=== PATIENT | male | born 1955 | race Caucasian/White ===

== ENCOUNTER → 2021-01-22 13:59 | Outpatient (CLI) | payer OTHER, SELFPAY | PROVIDERS: Referring Provider Nurse Practitioner; Visit Provider Nurse Practitioner | DX: N34.3 Urethral syndrome, unspecified (principal) | CPT/HCPCS: 87086 ==

== ENCOUNTER → 2021-01-22 14:05 | Outpatient (CLI) | payer OTHER, SELFPAY ==
--- NOTE | 2021-01-22 14:07 | DI.RAD.S_ITS ---
PROCEDURE: XR KUB INDICATIONS: r/o kidney stone TECHNIQUE: One view of the abdomen acquired. COMPARISON: None. FINDINGS: Surgical changes and devices: None. Bowel: Bowel gas pattern is nonobstructive. Moderate fecal stasis throughout the colon is seen. No gross free air. Soft tissues: No suspicious abdominal calcifications. Visualized solid organ contours appear normal in size. Bones: No suspicious bony lesions. IMPRESSION: No gross renal calcification is seen. Constipation. Dictated by: Kenroy Patten M.D. on 01/22/2021 at 14:20 Approved by: Kenroy Patten M.D. on 01/22/2021 at 14:20
[2021-01-22 14:42] LABS: Hemoglobin 15.2 g/dL (13.5-17.5); Mean Corpuscular HGB Conc 33.1 % (30-36); Mean Corpuscular Hemoglobin 30.8 PG (26-34); Mean Corpuscular Volume 93.1 fL (80-100); Platelet Count 388 X10^3/uL (150-400); Red Blood Cell Count 4.94 X10^6/uL (4.5-5.9); White Blood Cell Count 11.9 X10^3/uL (4.5-11.0)
[2021-01-22 15:07] LABS: Alanine Aminotransferase 20 IU/L (<50); Albumin 3.9 g/dL (3.5-5.0); Albumin Globulin Ratio 1.3 (1.0-2.8); Alkaline Phosphatase 98 U/L (38-126); Aspartate Aminotransferase 24 IU/L (17-59); BUN Creatinine Ratio 12.9 (6-22); Bilirubin Total 0.5 mg/dL (0.2-1.3); Blood Urea Nitrogen 19 mg/dL (9-20); Calcium 8.9 mg/dL (8.4-10.2); Carbon Dioxide 25 mmol/L (22-32); Chloride 98 mmol/L (98-107); Cholesterol 162 mg/dL (140-199); Estimated Glomerular Filt Rate 48.2 mL/min (>60); Globulin 3.1 g/dL (1.7-4.1); Glucose 92 mg/dL (80-110); HDL Cholesterol 30 mg/dL (40-60); LDL Cholesterol Calculated 91 mg/dL (<100); Sodium 137 mmol/L (137-145); Triglycerides 205 mg/dL (35-150)
[2021-01-22 15:11] LABS: HEMOLYSIS 70 (0-50)
[2021-01-22 15:12] LABS: Potassium 5.1 mmol/L (3.4-5.1)
== END ==
PROVIDERS: Referring Provider Nurse Practitioner; Visit Provider Nurse Practitioner
DX: K59.00 Constipation, unspecified (principal); R10.9 Unspecified abdominal pain; N34.3 Urethral syndrome, unspecified
CPT/HCPCS: 36415; 74018; 80053; 80061; 85027; 87086

== ENCOUNTER → 2021-02-05 11:43 | Outpatient (CLI) | payer OTHER, SELFPAY ==
--- NOTE | 2021-02-05 11:43 | DI.CT.S_ITS ---
PROCEDURE: CT ABDOMEN PELVIS WO CON INDICATIONS: History of right-sided calculi TECHNIQUE: Noncontrast 5 mm thick sections acquired from the diaphragms to the symphysis. 5 mm coronal and sagittal reformats were then performed. For radiation dose reduction, the following was used: automated exposure control, adjustment of mA and/or kV according to patient size. COMPARISON: [facility], CR, XR KUB, 01/22/2021, 14:01. FINDINGS: Image quality: Excellent. ABDOMEN: Lung bases: Lung bases are clear. Heart size is normal. Solid organs: Liver is normal in size. Gallbladder is within normal limits . Pancreas is normal in contours. Spleen is normal in size. No adrenal nodules. Kidneys are normal in size, without hydronephrosis or nephrolithiasis. Mild right proximal ureteral dilatation is present. There is an 8 mm calculus within the right mid ureter, which was not clearly seen on the previous plain film examination. Peritoneum and bowel: Stomach and small bowel are grossly unremarkable. Appendix is not seen. No evidence of appendicitis. Colon is nondistended. Diverticulosis of the descending and sigmoid colon is present. Mild thickening of the proximal sigmoid colon, which demonstrates mild surrounding fat stranding. There is a loculated gas collection at the posterior superior aspect of the proximal sigmoid colon, measuring roughly 25 mm, consistent with a contained perforation. No free pneumoperitoneum . No free fluid. Nodes and vessels: No retroperitoneal or mesenteric adenopathy by size criteria. Aorta and inferior vena cava are normal in caliber. Miscellaneous: No ventral hernias. PELVIS: Genitourinary: Bladder wall thickness is normal. Miscellaneous: No inguinal hernias or adenopathy. Bones: No suspicious bony lesions. No vertebral body compression fractures. IMPRESSION: 1. Right mid ureteral calculus, causing mild right ureteral taken without hydronephrosis. 2. Diverticulitis of the proximal sigmoid colon with adjacent contained perforation. No free pneumoperitoneum is present. Dictated by: Sophia Terrell M.D. on 02/05/2021 at 13:59 Approved by: Sophia Terrell M.D. on 02/05/2021 at 14:03
== END ==
PROVIDERS: Referring Provider Urology; Visit Provider Urology
DX: N20.1 Calculus of ureter (principal); K57.32 Diverticulitis of large intestine without perforation or abscess without bleeding; R10.9 Unspecified abdominal pain
CPT/HCPCS: 74176

== ENCOUNTER → 2021-02-22 12:42 | Outpatient (CLI) | payer OTHER, SELFPAY ==
[2021-02-22 15:16] LABS: COVID19 -Nasal RAPID Negative (Negative)
== END ==
PROVIDERS: Referring Provider Urology; Visit Provider Urology
DX: Z20.822 Contact with and (suspected) exposure to COVID-19 (principal); N20.1 Calculus of ureter; K59.00 Constipation, unspecified; R10.9 Unspecified abdominal pain; Z87.448 Personal history of other diseases of urinary system
CPT/HCPCS: 81002; 87635

== ENCOUNTER 2021-02-25 12:00 | Day surgery (SDC) | payer OTHER, SELFPAY ==
[2021-02-18 10:34] VITALS: BMI 32.5
[2021-02-25] VITALS (8 sets, daily range): BP systolic 129–155; BP diastolic 77–92; PULSE 60–85; RESP 10–18; TEMP 35.8–36.8; O2SAT 91–98; BMI 32.5
[2021-02-25] MEDS: LACTATED RINGERS 1,000 ML 42 ML IV ×2 (12:55→13:42)
--- NOTE | 2021-02-25 13:11 | PM.PREOP ---
Pre-operative Note COVID-19 COVID-19 status: Negative Result date/Date tested (Pos, Neg/Pending): 02/22/21 Interval Note History & Physical reviewed/Exam performed by Physician: Yes Changes to H&P: No
--- NOTE | 2021-02-25 13:36 | SUR.OPER ---
Lithotomy on padded OR bed, head on pillow, arms secured on padded arm boards at <90 degrees abduction. Legs secured in padded yellow fins stirrups.
[2021-02-25] MEDS: IOPAMIDOL 15 ML VIAL INJ (13:42)
[2021-02-25] MEDS: CEFAZOLIN 1 GM VIAL 2 GM IV (13:43)
--- NOTE | 2021-02-25 14:24 | PM.OP.1 ---
Procedure & Clinicians Procedure: Cystoscopy, retrograde pyelogram, semi-rigid right ureteroscopy with laser lithotripsy, basket extraction of stone fragments and placement of right ureteral stent. Same procedure as scheduled: Yes Indications: This is a 65-year-old male who had various complaints including some left-sided pain was found to have a 7 mm stone which was observed on several occasions and had failed to pass over an extended period of time. He presents this time for definitive treatment of his right ureteral stone. Surgeon: Madi Rivero Click Yes if Unassisted: Yes Anesthesia Type: General Operative Notes Findings: Findings: Urethra normal to the prostatic fossa which shows moderate obstructive character. The mucosa is normal throughout. The right and left ureteral orifice in normal position with clear efflux. Because of the bladder is normal. At retrograde pyelogram the stone is noted to be in the distal ureter perhaps 7-9 cm from the ureteral orifice. But distinctly below the vessels. At ureteroscopy the stone is noted in the fluoroscopic position fragmented and all fragments were removed. A 7 Vietnamese multi length stent was left in position in the right collecting system without a nylon hardness or string. No other abnormalities were noted. Closure Type: not applicable Specimen(s): other (Stone fragments from right ureteral calculus) Applied: other (Ureteral stent 7 Vietnamese multi length no string) Estimated Blood Loss (mL): 0 Blood products transfused: none Procedure in detail: Procedure in detail: After informed consent was obtained, patient was identified and brought to the operating room. The patient was then placed in the supine position on the table and anesthesia was induced and maintained. After ensuring an adequate level of anesthesia the patient was transitioned to a lithotomy position. Patient was then prepped, draped and prepared for cystoscopic and ureteroscopic procedure. After prepping draping and ensure inadequate level anesthesia a 21 Vietnamese cystoscope was passed to the urethra and into the bladder. Cystoscopy is then performed. A cone-tipped catheters then impacted in the right ureteral orifice and under fluoroscopic visualization collecting system was filled with contrast the stone was identified in the distal ureter. The cone-tip catheter was removed and a hybrid wire was passed up past the stone and into the collecting system to be reserved as a safety wire. The scope having been removed to do this was then reinserted and a 2nd wire, an extra stiff Amplatz wire, was passed up in in the collecting system. The semi-rigid scope was then passed up to the level of the stone. The laser fiber was inserted and laser energy applied to the stone dusting and fragmenting it. With the stone adequately fragmented the laser fiber was removed after the laser been placed on standby. A Nitinol basket was then used to retrieve the fragments sequentially they were removed from the ureter and dropped in the bladder till no stone fragments remained within the ureter. The ureteral scope was then removed with the basket and the cystoscope reinserted and the stone fragments evacuated. With this accomplished the scope having been removed the wire was then backloaded through the scope and the scope placed back into the bladder. The stent was then passed over the wire and positioned in the renal pelvis under fluoroscopic visualization as well as in the bladder under direct vision. Grasping forceps was then inserted in the nylon heart is remove the stent was left in good position bladder was redraped drained and the scope was removed. With this having been accomplished the patient was awakened having tolerated the procedure well he was then transferred to the postanesthesia care unit. There were no complications Complications: none Post-operative Condition: stable Disposition: PACU Plan for aftercare: Patient to follow-up my office in 10 days to 2 weeks with a KUB.
[2021-03-02 12:58] LABS: Ca oxalate dihydrate 20 % (.); Ca oxalate monohydr 80 % (.); Size 6x3 mm (.)
== END 2021-02-25 16:20 | disposition home or self-care (01) ==
PROVIDERS: Referring Provider Urology; Visit Provider Urology
PROC: 0TF68ZZ Fragmentation in Right Ureter, Via Natural or Artificial Opening Endoscopic (ICD-10-PCS; CPT 52353; principal; 2021-02-25 13:45)
DX: N20.1 Calculus of ureter (principal); Z87.448 Personal history of other diseases of urinary system; K59.00 Constipation, unspecified
CPT/HCPCS: 52356; 76000; 82365; J0690; J1100; J2405; J2704; J3010

== ENCOUNTER → 2021-03-03 12:28 | Outpatient (CLI) | payer OTHER, SELFPAY ==
--- NOTE | 2021-03-03 12:29 | DI.RAD.S_ITS ---
PROCEDURE: XR KUB INDICATIONS: Stent placement TECHNIQUE: One view of the abdomen acquired. COMPARISON: [facility], CT, CT ABDOMEN PELVIS WO CON, 02/05/2021, 12:09. [facility], CR, XR KUB, 01/22/2021, 14:01. FINDINGS: Surgical changes and devices: A right double-J ureteral stent is seen in the expected location of the right ureter Bowel: Bowel gas pattern is normal. Soft tissues: No suspicious abdominal calcifications. Visualized solid organ contours appear normal in size. Bones: No suspicious bony lesions. IMPRESSION: Right ureteral stent is seen in expected position. Dictated by: Brian Paul M.D. on 03/03/2021 at 14:07 Approved by: Brian Paul M.D. on 03/03/2021 at 14:09
== END ==
PROVIDERS: Referring Provider Urology; Visit Provider Urology
DX: N20.1 Calculus of ureter (principal); Z96.0 Presence of urogenital implants
CPT/HCPCS: 74018

== ENCOUNTER → 2021-03-08 15:52 | Outpatient (CLI) | payer OTHER, SELFPAY | PROVIDERS: Visit Provider Urology | DX: R30.0 Dysuria (principal) | CPT/HCPCS: 81002; 87086 ==

== ENCOUNTER → 2021-03-18 15:24 | Outpatient (CLI) | payer OTHER, SELFPAY | PROVIDERS: Visit Provider Urology | DX: R30.0 Dysuria (principal); N20.1 Calculus of ureter; Z96.0 Presence of urogenital implants; Z87.448 Personal history of other diseases of urinary system | CPT/HCPCS: 52310; 81002; 87086 ==

== ENCOUNTER → 2021-03-30 14:25 | Outpatient (CLI) | payer OTHER, SELFPAY ==
[2021-03-30 15:28] LABS: Uric Acid 6.3 mg/dL (3.5-8.5)
[2021-03-31 14:08] LABS: Calcium 9.4 mg/dL (8.6-10.2); Parathyroid Hormone, Intact 48 pg/mL (15-65)
== END ==
PROVIDERS: Referring Provider Urology; Visit Provider Urology
DX: N20.2 Calculus of kidney with calculus of ureter (principal); N20.1 Calculus of ureter
CPT/HCPCS: 36415; 81002; 82310; 83970; 84550

== ENCOUNTER → 2021-05-04 16:09 | Outpatient (CLI) | payer OTHER, SELFPAY ==
--- NOTE | 2021-05-04 | DI.RAD.S_ITS ---
PROCEDURE: XR CHEST 2V INDICATIONS: Chest Pain TECHNIQUE: 2 views of the chest were acquired. COMPARISON: None. FINDINGS: Surgical changes and devices: None. Lungs and pleura: Lungs are clear. No pleural effusions or pneumothorax. Mediastinum: Mediastinal contours are normal. Heart size is normal. Bones and chest wall: No suspicious bony abnormalities. Soft tissues appear unremarkable. IMPRESSION: Unremarkable two view chest radiograph Approved by: Yordy Estevez M.D. on 05/04/2021 at 16:18
== END ==
PROVIDERS: PCP Student in an Organized Health Care Education/Training Program; Referring Provider Student in an Organized Health Care Education/Training Program; Visit Provider Student in an Organized Health Care Education/Training Program
DX: R07.9 Chest pain, unspecified (principal)
CPT/HCPCS: 71046

== ENCOUNTER → 2021-06-16 15:10 | Outpatient (CLI) | payer OTHER, SELFPAY ==
--- NOTE | 2021-06-16 16:04 | PM.TREADMILL ---
Cardiac Stress Test Report Referral & Results Indication: chest pain Rest ECG: nsr Procedure Note: treadmill stress test Impression: standard janell protocol, 7:58, mets 10.1, MADHURI 0%, fair exercise capacity, normal hemodynamic response to exercise, 3/10 squeezing left sided chest pain during exercise that resolved immediately in recovery, no st changes noted, max HR 160 (120% of target heart rate achieved), normal bp response, rest ecg is normal. MANUEL Boogie. Please note: Actual ECG tracings can be found in the PACS system.
--- NOTE | 2021-06-17 19:05 | DI.NM.S_ITS ---
DATE OF SERVICE: 06/16/2021 PROCEDURE: Exercise stress test. INDICATION: Chest discomfort with underlying hypertension. CARDIAC STRESS: The patient underwent exercise stress test under the supervision of an attending staff. The patient walked on Chuckie protocol for 7 minutes and 58 seconds, achieved 103 percent of target heart rate. Baseline blood pressure 129/80 mmHg. Peak blood pressure 194/90 mmHg. Maximum heart rate was 160 beats per minute. The patient achieved 10.1 METs of workload. MADHURI is 0 percent. Baseline rhythm was sinus with left anterior fascicular block. During stress, no convincing ischemic changes seen. No significant arrhythmias seen. The patient developed chest discomfort, which was on a scale of 1 to 10, 3 in intensity during exercise, which got resolved in recovery immediately. CONCLUSION: 1. Exercise test is negative for inducible ischemia. However, patient had anginal-type of chest discomfort during exercise, which got resolved in recovery. Fair exercise tolerance. Normal hemodynamic response. No significant arrhythmias. Baseline left anterior fascicular block. 2. Considering his age of 65, being male, with hypertension, will recommend repeating exercise stress test with perfusion study, like a myocardial perfusion study or exercise stress echo for further coronary artery disease diagnosis and risk stratification. Gerber Smith - STEPHEN/taqueria/luis doc#: [id number]/job#: [id number] dd: 06/17/2021 17:26:00 dt: 06/17/2021 17:35:00 DICTATING /COPIES TO: Moi Merritt MD COPIES MNE: MAT;
== END ==
PROVIDERS: PCP Student in an Organized Health Care Education/Training Program; Referring Provider Student in an Organized Health Care Education/Training Program; Visit Provider Student in an Organized Health Care Education/Training Program
DX: R07.89 Other chest pain (principal); I10 Essential (primary) hypertension
CPT/HCPCS: 93017

== ENCOUNTER → 2021-06-21 14:51 | Outpatient (CLI) | payer OTHER, SELFPAY ==
--- NOTE | 2021-06-21 | DI.ECHO.S_ITS ---
[facility]---------+ [facility] +---------+ : : [address] : : : : [id number] : : : : Phone: [phone]---------+ Echocardiogram Report + + :Name: NERY CISNEROS Study Date: 06/21/2021 Height: 68 in : :[facility] ReadingLocation: Weight: 212 lb : : Gender: Male BSA: 2.1 m2 : :: 1955 Age: 65 yrs BP: 148/91 mmHg: :Reason For Study: CHEST PAIN : :Ordering Physician: LITO, : :ANA Performed By: Krupa Davis : :Referring: ANA MORSE : + + Interpretation Summary The ejection fraction is estimated to be 45-50%. Diastolic function could not be accurately assessed due to contradictory data. The right ventricle is normal in size and function. No significant valvular abnormalities. Pulmonary artery pressures cannot be estimated because of the lack of a measurable TR jet velocity. Procedure: A two-dimensional transthoracic echocardiogram with color flow and Doppler was performed. The study quality was technically adequate. There is no prior echocardiogram noted for this patient. The patient was in sinus rhythm with heart rates between 59-65 bpm during the exam. Left Ventricle: The left ventricle is normal in size and wall thickness. The ejection fraction is estimated to be 45-50%. Diastolic function could not be accurately assessed due to contradictory data. Right Ventricle: The right ventricle is normal in size and function. Atria: The left atrial size is normal. Right atrial size is normal. There is no Doppler evidence for an interatrial shunt. Mitral Valve: The mitral valve is normal in structure and function. There is trace mitral regurgitation. Aortic Valve: The aortic valve is trileaflet. The aortic valve opens well. There is no aortic valve stenosis. No aortic regurgitation is present. Tricuspid Valve: The tricuspid valve is normal in structure and function. There is trace tricuspid regurgitation. Pulmonary artery pressures cannot be estimated because of the lack of a measurable TR jet velocity. Pulmonic Valve: The pulmonic valve leaflets are thin and pliable; valve motion is normal. There is mild pulmonic regurgitation. Great Vessels: The aortic root is normal size. The dimensions of the ascending aorta are normal. The IVC is of normal diameter and collapses greater than 50% with a sniff. This suggests a low right atrial pressure of 3 mm Hg. Pericardium/ Pleura There is no pericardial effusion. There is no pleural effusion. MMode/2D Measurements & Calculations LVIDd: 5.2 cm LVOT diam: 2.2 cm LVIDs: 3.9 cm Ao root diam: 3.4 cm FS: 25.7 % asc Aorta Diam: 3.2 cm IVSd: 0.75 cm Ao Arch Diam (Prox Trans): 3.3 cm LVPWd: 0.86 cm LV meade. diameter/BSA (cm/m^2): 2.5 LV sys. diameter/BSA (cm/m^2): 1.9 LA A2 area: 21.9 cm2 RA long axis: 5.2 cm LA A4 area: 16.2 cm2 RA area: 16.9 cm2 LA length (vol): 5.2 cm RA vol: 46.8 ml LA vol: 58.2 ml RA : 22.3 ml/m2 LA vol index: 27.8 ml/m2 IVC diam: 1.4 cm RVD1 (basal): 3.5 cm TAPSE: 1.8 cm Doppler Measurements & Calculations Ao V2 max: 109.1 cm/sec LVOT Max Tonny: 71.6 cm/sec Ao V2 mean: 76.1 cm/sec LV V1 max P.0 mmHg Ao max P.8 mmHg LV V1 VTI: 16.5 cm Ao mean P.6 mmHg JOANN(I,D): 2.9 cm2 Ao V2 VTI: 22.2 cm JOANN(V,D): 2.5 cm2 sev ratio: 0.74 JOANN indexed to BSA (cm^2/m^2): 1.4 MV E max tonny: 63.7 cm/sec PA V2 max: 138.5 cm/sec MV A max tonny: 74.2 cm/sec PA V2 mean: 89.1 cm/sec MV E/A: 0.86 PA mean P.7 mmHg Med Peak E' Tnony: 6.2 cm/sec PA pr(Accel): 29.3 mmHg E/E' med: 10.3 Lat Peak E' Tonny: 7.1 cm/sec E/E' lat: 9.0 E/e' average: 9.7 MV dec time: 0.24 sec SV(LVOT): 64.1 ml Reading Physician:08:43 AM
== END ==
PROVIDERS: PCP Student in an Organized Health Care Education/Training Program; Referring Provider Student in an Organized Health Care Education/Training Program; Visit Provider Student in an Organized Health Care Education/Training Program
DX: R07.9 Chest pain, unspecified (principal)
CPT/HCPCS: 93306

== ENCOUNTER → 2024-05-23 14:12 | Outpatient (CLI) | payer OTHER, SELFPAY ==
--- NOTE | 2024-05-23 14:15 | DI.CT.S_ITS ---
PROCEDURE: CT KIDNEY URETER BLADDER (KUB) INDICATIONS: KIDNEY PAIN, RUQ PAIN TECHNIQUE: Axial sections were acquired from the lung bases to the pubic symphysis. Coronal and sagittal reformats were performed. For radiation dose reduction, the following was used: automated exposure control, adjustment of mA and/or kV according to patient size. COMPARISON: None. FINDINGS: Image quality: Diagnostic. Lower Chest: No significant findings. URINARY: Right Kidney: No stones or hydronephrosis. Right Ureter: No hydroureter. Left Kidney: No stones or hydronephrosis. Left Ureter: No hydroureter. Bladder: Normal wall thickness. No stones. ABDOMEN: Liver: No contour-deforming solid mass. Scattered subcentimeter hypoattenuating lesions, too small to characterize by CT but probably small cysts. Gallbladder: No radiopaque gallstones or wall thickening. Biliary ducts: No biliary dilation. Pancreas: No ductal dilation. Spleen: Size is within normal limits. Adrenal Glands: No adrenal nodules. Stomach and Bowel: Normal colonic caliber, without significant wall thickening. Colonic diverticulosis without evidence of diverticulitis. Normal appendix. Peritoneum: No abnormal intraperitoneal fluid. No free air. Ventral Wall: No hernia. Abdominal Nodes: No enlarged retroperitoneal or mesenteric lymph nodes. Vessels: Aorta and inferior vena cava are normal in size. PELVIS: Pelvic Organs: Unremarkable. Pelvic Nodes: Unremarkable. Miscellaneous: Small left inguinal hernia containing fat. Lipoma within the medial deep musculature group of the left lower extremity measuring 6.3 cm. Bones: Unremarkable. IMPRESSION: No obstructing stones or hydronephrosis. Colonic diverticulosis without evidence of diverticulitis. Normal appendix. Normal gallbladder. Dictated by: Stone Tamayo M.D. on 05/24/2024 at 9:54 Approved by: Stone Tamayo M.D. on 05/24/2024 at 9:56
== END ==
PROVIDERS: PCP Family Medicine; Referring Provider Family Medicine; Visit Provider Family Medicine
DX: N23 Unspecified renal colic (principal); R10.11 Right upper quadrant pain; K57.90 Diverticulosis of intestine, part unspecified, without perforation or abscess without bleeding; K40.90 Unilateral inguinal hernia, without obstruction or gangrene, not specified as recurrent; D17.9 Benign lipomatous neoplasm, unspecified
CPT/HCPCS: 74176